=== PATIENT | male | born 1955 | race Caucasian/White ===

== ENCOUNTER 2019-11-28 17:06 | Inpatient (IN) ==
[~2019-11-28 17:06] MED LIST: *HR* Etomidate 20 MG/10 ML AMPUL IVP ONE; *HR* Rocuronium Bromide 100 MG/10 ML VIAL IVC ONE
[2019-11-28] MEDS ORDERED: 0.9 % Sodium Chloride 1,000 ML IVC ONE ×3 (17:12→19:10)
[2019-11-28] MEDS ORDERED: Isovue-370 500 ML BOTTLE IVP ONE (17:16)
[2019-11-28] MEDS ORDERED: Piperacillin/Tazobactam 3.375 GM in Water for inj. (sterile) 20 ML IVP ONE (17:34)
[2019-11-28 17:46] LABS: VBG HCO3 24 mEq/L (21-27); VBG PCO2 48 mmHg (41-51); VBG PH 7.32 pH Units (7.32-7.42); VBG PO2 57 mmHg (25-50)
[2019-11-28 17:50] LABS: Basophils % 0.3 %; Hematocrit 49.5 % (37.5-50.1); Hemoglobin 17.1 g/dL (12.9-16.9); Immature Granulocytes % 0.7 % (0-4); Lymphocytes # 1.1 K/mcL (0.6-4.6); Lymphocytes % 12.7 %; Mean Corpuscular HGB Conc 34.5 g/dL (31.6-35.5); Mean Corpuscular Hemoglobin 36.5 pg (28.0-33.3); Mean Corpuscular Volume 105.5 fL (83.0-100.0); Mean Platelet Volume 11.7 fL (9.4-12.4); Monocytes % 10.6 %; Neutrophils # 6.8 K/mcL (1.6-8.9); Red Blood Count 4.69 M/mcL (4.19-5.50); Red Cell Distribution Width 15.6 % (11.5-14.5); Segmented Neutrophils % 75.7 %
[2019-11-28 17:52] LABS: Platelet Count 83 K/mcL (140-400)
[2019-11-28 18:04] LABS: Alanine Aminotransferase 47 Units/L (7-52); Albumin 2.7 g/dL (3.5-5.7); Albumin/Globulin Ratio 0.8 (1.1-2.2); Alkaline Phosphatase 117 Units/L (34-104); Aspartate Amino Transferase 113 Units/L (13-39); BUN/Creatinine Ratio 29 (6-26); Bilirubin,Direct 3.9 mg/dL (0.0-0.2); Bilirubin,Indirect 8.9 mg/dL (0.0-1.0); Bilirubin,Total 12.8 mg/dL (0.3-1.0); Blood Urea Nitrogen 81 mg/dL (8-23); Calcium 9.6 mg/dL (8.6-10.3); Carbon Dioxide 23 mEq/L (23-29); Chloride 98 mEq/L (98-107); Ethanol < 10 mg/dL (Less than 10); Globulin 3.5 g/dL (2.4-3.5); Glucose 686 mg/dL (70-105); Osmolality,Calculated 335 (280-300); Potassium 4.4 mEq/L (3.5-5.1); Sodium 134 mEq/L (136-145); Total Protein 6.2 g/dL (6.4-8.9); eGFR For African Americans 28 (> 60); eGFR For Non-African Americans 23 (> 60)
[2019-11-28 18:10] LABS: INR 1.6; Prothrombin Time 17.9 Seconds (9.4-12.1)
[2019-11-28 18:12] LABS: Activated Partial Thrombo Time 29.9 Seconds (26.0-36.0)
[2019-11-28 18:22] LABS: Troponin I 0.12 ng/mL (< 0.04)
[2019-11-28 18:53] LABS: Thyroid Stimulating Hormone 1.101 mcIU/mL (0.340-5.600)
[2019-11-28] MEDS: FentaNYL (PF) 1,000 MCG in 0.9 % Sodium Chloride 80 ML IVC SCH (19:02)
[2019-11-28 19:49] LABS: Amphetamine Screen,Urine Negative ng/mL (Cutoff=1000); Barbiturate Screen,Urine Negative ng/mL (Cutoff=200); Benzodiazepines Screen,Urine Negative ng/mL (Cutoff=200); Cannabinoid Screen,Urine Negative ng/mL (Cutoff = 50); Cocaine Screen,Urine Negative ng/mL (Cutoff= 300); Opiate Screen,Urine Negative ng/mL (Cutoff=300); Phencyclidine Screen,Urine Negative ng/mL (Cutoff=25)
[2019-11-28 19:59] LABS: Clarity,Urine Hazy (Clear); Color,Urine Dark-Orange (Yellow)
[2019-11-28 20:15] LABS: Squamous Epithelial Cell,Urine Few per lpf (None-Few)
[2019-11-28 20:19] LABS: Bacteria,Urine Moderate per hpf (None-Few); WBC,Urine 15-30 per hpf (0-3)
[2019-11-28 20:20] LABS: Hyaline Casts,Urine Few per lpf (None-Few)
[2019-11-28 20:38] LABS: Lipase 84 Units/L (11-82)
[2019-11-28] MEDS ORDERED: Insulin Regular, Human 100 UNIT/ML IV PRN (20:53)
[2019-11-28] MEDS ORDERED: Insulin Regular, Human 100 UNIT/ML IV STA (20:56)
[2019-11-28 21:11] LABS: ABG Base Excess 0 mEq/L (-2 to 3); ABG HCO3 26 mEq/L (21-27); ABG Oxygen Saturation 100 % (95-98); ABG PCO2 46 mmHg (35-45); ABG PH 7.36 pH Units (7.32-7.45); ABG PO2 361 mmHg (85-104); ABG TCO2 27 mEq/L (20-26); Blood Gas Modality VC; Blood Gas VT 550 cc
[2019-11-28] MEDS: Insulin Human Regular 100 UNIT in 0.9 % Sodium Chloride 100 ML IVC SCH (21:26)
[2019-11-28 22:00] LABS: Albumin 2.2 g/dL (3.5-5.7); Albumin/Globulin Ratio 0.7 (1.1-2.2); Bilirubin,Total 10.6 mg/dL (0.3-1.0); Calcium 8.6 mg/dL (8.6-10.3); Globulin 3.1 g/dL (2.4-3.5); Magnesium 2.2 mg/dL (1.6-2.6); Potassium 4.6 mEq/L (3.5-5.1); Total Protein 5.3 g/dL (6.4-8.9)
[2019-11-28] MEDS ORDERED: Lactulose Oral Soln 20 GM/30 ML UDC PO ONE (22:08)
[2019-11-28] MEDS ORDERED: FentaNYL (PF) 1,000 MCG in 0.9 % Sodium Chloride 80 ML IVC SCH (23:45)
[2019-11-29] MEDS ORDERED: Naloxone 0.4 MG/ML INJ IVP PRN (00:20)
[2019-11-29] MEDS ORDERED: Ondansetron 4 MG/2 ML VIAL IVP PRN (00:20)
[2019-11-29] MEDS: FentaNYL (PF) 1,000 MCG in 0.9 % Sodium Chloride 80 ML IVC SCH (01:00)
[2019-11-29] MEDS: 0.9 % Sodium Chloride 1,000 ML IVC SCH ×4 (01:22→04:07)
[2019-11-29 01:23] LABS: Estimated Average Glucose 243 mg/dl
[2019-11-29] MEDS ORDERED: D5% in 0.45% NACL 1,000 ML IVC PRN (01:31)
[2019-11-29] MEDS ORDERED: D5% in 0.45% NACL w KCl 20 MEQ/1,000 ML MLS IVC PRN (01:31)
[2019-11-29] MEDS ORDERED: *HR* Dextrose 50 % in Water (Syg) 50 ML SYRINGE IVP PRN ×2 (01:31→08:50)
[2019-11-29] MEDS: 0.45 % Sodium Chloride w/KCl 20 MEQ/1,000 ML MLS IVC SCH ×2 (01:50→05:23)
[2019-11-29] MEDS: Pantoprazole 40 MG VIAL IVP SCH ×2 (02:10→09:57)
[2019-11-29] MEDS: Insulin Human Regular 100 UNIT in 0.9 % Sodium Chloride 100 ML IVC SCH (04:02)
[2019-11-29] MEDS: Piperacillin/Tazobactam 3.375 GM in 0.9 % Sodium Chloride Mini Bag 100 ML IVPB SCH ×3 (04:07→17:29)
[2019-11-29 04:54] LABS: ABG Base Excess -1 mEq/L (-2 to 3); ABG HCO3 26 mEq/L (21-27); ABG Oxygen Saturation 98 % (95-98); ABG PCO2 51 mmHg (35-45); ABG PH 7.31 pH Units (7.32-7.45); ABG PO2 122 mmHg (85-104); ABG TCO2 27 mEq/L (20-26); Blood Gas Modality AF; Blood Gas VT 550 cc
[2019-11-29 05:37] LABS: Basophils % 0.4 %
[2019-11-29 05:39] LABS: Basophils # 0.1 K/mcL (0.0-0.2); Eosinophils # 0.1 K/mcL (0.0-0.6); Eosinophils % 0.7 %; Immature Granulocytes % 1.1 % (0-4); Immature Platelets 6.2 % (1.1-6.1); Lymphocytes # 1.7 K/mcL (0.6-4.6); Lymphocytes % 14.2 %; Mean Corpuscular HGB Conc 34.9 g/dL (31.6-35.5); Mean Corpuscular Volume 103.1 fL (83.0-100.0); Mean Platelet Volume 11.4 fL (9.4-12.4); Monocytes # 1.1 K/mcL (0.0-1.3); Neutrophils # 8.9 K/mcL (1.6-8.9); Nucleated Red Blood Cells 0.3 /100 WBC (0); Red Blood Count 4.17 M/mcL (4.19-5.50); Segmented Neutrophils % 74.6 %; White Blood Count 11.9 K/mcL (4.3-11.1)
[2019-11-29 05:39] LABS: INR 1.6; Prothrombin Time 18.5 Seconds (9.4-12.1)
[2019-11-29 05:43] LABS: Platelet Count 69 K/mcL (140-400)
[2019-11-29] MEDS: *HR* Dextrose 50 % in Water (Syg) 50 ML SYRINGE IVP PRN ×2 (06:10→06:31)
[2019-11-29 06:18] LABS: Albumin 2.2 g/dL (3.5-5.7); Bilirubin,Total 9.5 mg/dL (0.3-1.0); Calcium 8.4 mg/dL (8.6-10.3); Magnesium 2.1 mg/dL (1.6-2.6); Phosphorous 5.1 mg/dL (2.7-4.5); Potassium 3.8 mEq/L (3.5-5.1); Thyroid Stimulating Hormone 1.756 mcIU/mL (0.340-5.600)
[2019-11-29 06:29] LABS: Albumin/Globulin Ratio 0.8 (1.1-2.2); Globulin 2.9 g/dL (2.4-3.5); Total Protein 5.1 g/dL (6.4-8.9)
[2019-11-29] MEDS ORDERED: Artificial Tears SOLN 15 ML BOTTLE BOTH EYES PRN (08:47)
[2019-11-29] MEDS ORDERED: D5% in Water 1,000 ML IVC PRN (08:50)
[2019-11-29] MEDS ORDERED: Dextrose Gel 15 GM/37.5 ML TUBE PO PRN ×2 (08:50)
[2019-11-29] MEDS ORDERED: Chlorhexidine Rinse 15 ML MOUTHWASH MM SCH (09:00)
[2019-11-29] MEDS ORDERED: Insulin DETEMIR 100 UNIT/ML X5UNITS SQ SCH ×2 (09:00→12:00)
[2019-11-29] MEDS ORDERED: Lactulose Oral Soln 20 GM/30 ML UDC PO SCH (09:00)
[2019-11-29 09:03] LABS: Adenovirus Not Detected (Not Detect); Bordetella Pertussis Not Detected (Not Detect); Chlamydophila pneumoniae Not Detected (Not Detect); Coronavirus 229E Not Detected (Not Detect); Coronavirus HKU1 Not Detected (Not Detect); Coronavirus NL63 Not Detected (Not Detect); Coronavirus OC43 Not Detected (Not Detect); Human Metapneumovirus Not Detected (Not Detect); Human Rhinovirus/Enterovirus Not Detected (Not Detect); Influenza A Subtype 2009 H1 Not Detected (Not Detect); Influenza B Not Detected (Not Detect); Mycoplasma pneumoniae Not Detected (Not Detect); Parainfluenza Virus 1 Not Detected (Not Detect); Parainfluenza Virus 2 Not Detected (Not Detect); Parainfluenza Virus 3 Not Detected (Not Detect); Parainfluenza Virus 4 Not Detected (Not Detect); Respiratory Syncytial Virus Not Detected (Not Detect)
[2019-11-29] MEDS ORDERED: 0.9 % Sodium Chloride 1,000 ML IVC SCH (09:30)
[2019-11-29] MEDS ORDERED: CLEAR EYES NATURAL TEARS 15 ML BOTTLE BOTH EYES PRN (09:45)
[2019-11-29] MEDS: Hydrocortisone Sodium Succ 100 MG/2 ML VIAL IVP SCH ×3 (09:57→17:29)
[2019-11-29] MEDS ORDERED: *HR* Acetylcysteine 20% 600 MG/3 ML ORAL SYRINGE PO SCH (11:15)
[2019-11-29] MEDS ORDERED: D5% in 0.45% NACL 1,000 ML IVC SCH (11:15)
[2019-11-29] MEDS ORDERED: Dexmedetomidine HCl 400 MCG/100 ML MLS IVC SCH (11:15)
[2019-11-29] MEDS: Insulin LISPRO 300 UNITS/3 ML VIAL SQ SCH ×2 (11:52→16:25)
[2019-11-29] MEDS ORDERED: Insulin LISPRO 300 UNITS/3 ML VIAL SQ SCH ×3 (12:00→16:51)
[2019-11-29] MEDS: CLEAR EYES NATURAL TEARS 15 ML BOTTLE BOTH EYES SCH ×2 (12:16→16:25)
[2019-11-29] MEDS ORDERED: Norepinephrine 4 MG in 0.9 % Sodium Chloride 250 ML IVC SCH (13:45)
[2019-11-29 15:13] LABS: Calcium 8.2 mg/dL (8.6-10.3); Potassium 5.6 mEq/L (3.5-5.1)
[2019-11-29] MEDS ORDERED: Albumin 25% 25gram/100mL 25 GM/100 ML IV.SOLN IVPB SCH (16:00)
[2019-11-29] MEDS ORDERED: Insulin DETEMIR 100 UNIT/ML X5UNITS SQ ONE (16:42)
[2019-11-29] MEDS ORDERED: Aminoglycoside Consult 1 EACH MC ONE (18:29)
[2019-11-29 18:38] VITALS: BP 82/57
== END 2019-11-29 18:30 | disposition short-term general hospital (02) | DRG 441 ==
LOC: EMEROOARM 17:06 → ICNU 23:21
PROVIDERS: ADMIT Internal Medicine; ATTEND Internal Medicine